=== PATIENT | male | born 1945 | race Caucasian/White ===

== ENCOUNTER 2020-07-15 12:01 | Observation (INO) ==
[2020-07-15] MEDS ORDERED: Isovue-370 500 ML BOTTLE IVP ONE (12:08)
[2020-07-15 12:26] LABS: Hematocrit 38.4 % (37.5-50.1); Hemoglobin 13.2 g/dL (12.9-16.9); Mean Corpuscular HGB Conc 34.4 g/dL (31.6-35.5); Mean Corpuscular Hemoglobin 29.9 pg (28.0-33.3); Mean Corpuscular Volume 87.1 fL (83.0-100.0); Mean Platelet Volume 11.9 fL (9.4-12.4); Platelet Count 136 K/mcL (140-400); Red Blood Count 4.41 M/mcL (4.19-5.50); Red Cell Distribution Width 13.2 % (11.5-14.5)
[2020-07-15 12:33] LABS: Prothrombin Time 11.3 Seconds (9.4-12.1)
[2020-07-15 12:36] LABS: Activated Partial Thrombo Time 26.1 Seconds (26.0-36.0)
[2020-07-15 12:49] LABS: BUN/Creatinine Ratio 19 (6-26); Blood Urea Nitrogen 20 mg/dL (8-23); Calcium 8.9 mg/dL (8.6-10.3); Carbon Dioxide 27 mEq/L (23-29); Chloride 105 mEq/L (98-107); Glucose 111 mg/dL (70-105); Osmolality,Calculated 291 (280-300); Potassium 4.2 mEq/L (3.5-5.1); Sodium 139 mEq/L (136-145); eGFR For African Americans > 60 (> 60); eGFR For Non-African Americans > 60 (> 60)
[2020-07-15 12:50] LABS: Troponin I 0.03 ng/mL (< 0.04)
[2020-07-15] MEDS ORDERED: Aspirin 325 MG TABLET PO ONE (13:18)
[2020-07-15] MEDS ORDERED: Naloxone 0.4 MG/ML INJ IVP PRN (15:53)
[2020-07-15] MEDS: Melatonin 3 MG TABLET PO SCH (22:22)
[2020-07-15] MEDS: Ascorbic Acid 500 MG TABLET PO SCH (22:23)
[2020-07-16 01:10] LABS: Basophils % 0.3 %; Eosinophils # 0.2 K/mcL (0.0-0.6); Eosinophils % 2.7 %; Hematocrit 39.8 % (37.5-50.1); Hemoglobin 13.4 g/dL (12.9-16.9); Immature Granulocytes % 0.8 % (0-4); Lymphocytes # 1.2 K/mcL (0.6-4.6); Lymphocytes % 16.8 %; Mean Corpuscular HGB Conc 33.7 g/dL (31.6-35.5); Mean Corpuscular Hemoglobin 29.6 pg (28.0-33.3); Mean Corpuscular Volume 87.9 fL (83.0-100.0); Mean Platelet Volume 12.2 fL (9.4-12.4); Monocytes # 0.5 K/mcL (0.0-1.3); Neutrophils # 5.2 K/mcL (1.6-8.9); Platelet Count 148 K/mcL (140-400); Red Blood Count 4.53 M/mcL (4.19-5.50); Red Cell Distribution Width 13.2 % (11.5-14.5); Segmented Neutrophils % 72.4 %; White Blood Count 7.1 K/mcL (4.3-11.1)
[2020-07-16 01:26] LABS: BUN/Creatinine Ratio 17 (6-26); Blood Urea Nitrogen 18 mg/dL (8-23); Calcium 8.6 mg/dL (8.6-10.3); Carbon Dioxide 26 mEq/L (23-29); Chloride 104 mEq/L (98-107); Chol/HDL Ratio 3.2 (0-4.9); Cholesterol 158 mg/dL (< 200); Glucose 95 mg/dL (70-105); HDL Cholesterol 49 mg/dL (40-59); LDL Cholesterol,Calculated 81 mg/dL (< 100); Osmolality,Calculated 288 (280-300); Potassium 4.3 mEq/L (3.5-5.1); Sodium 138 mEq/L (136-145); Triglycerides 140 mg/dL (< 150); Troponin I 0.03 ng/mL (< 0.04); eGFR For African Americans > 60 (> 60); eGFR For Non-African Americans > 60 (> 60)
[2020-07-16] MEDS: Ascorbic Acid 500 MG TABLET PO SCH ×2 (07:33→21:36)
[2020-07-16] MEDS ORDERED: Perflutren Lipid Microsphere 1.3 ML in 0.9 % Sodium Chloride 8.7 ML IVP PRN (10:08)
[2020-07-16] MEDS ORDERED: Artificial Tears SOLN 15 ML BOTTLE OP PRN (10:14)
[2020-07-16] MEDS ORDERED: Magnesium Oxide 400 MG TABLET PO PRN (10:14)
[2020-07-16 13:23] LABS: Estimated Average Glucose 128 mg/dl
[2020-07-16] MEDS: Regadenoson 0.4 MG/5 ML SYRINGE IVP ONE (13:39)
[2020-07-16] MEDS: *HR* Heparin 5,000 UNIT/ML VIAL SQ SCH (16:48)
[2020-07-16] MEDS: Melatonin 3 MG TABLET PO SCH (21:36)
[2020-07-16] MEDS: Budesonide/Formoterol 160/4.5 1 PUFF INH IH SCH (23:58)
[2020-07-17] MEDS: *HR* Heparin 5,000 UNIT/ML VIAL SQ SCH (05:09)
[2020-07-17] MEDS ORDERED: Regadenoson 0.4 MG/5 ML SYRINGE IVP ONE (05:51)
[2020-07-17 06:23] LABS: Hematocrit 42.1 % (37.5-50.1); Hemoglobin 14.4 g/dL (12.9-16.9); Mean Corpuscular HGB Conc 34.2 g/dL (31.6-35.5); Mean Corpuscular Hemoglobin 30.2 pg (28.0-33.3); Mean Corpuscular Volume 88.3 fL (83.0-100.0); Mean Platelet Volume 12.2 fL (9.4-12.4); Platelet Count 152 K/mcL (140-400); Red Blood Count 4.77 M/mcL (4.19-5.50); Red Cell Distribution Width 13.2 % (11.5-14.5); White Blood Count 6.6 K/mcL (4.3-11.1)
[2020-07-17] MEDS: Regadenoson 0.4 MG/5 ML SYRINGE IVP ONE (07:44)
[2020-07-17] MEDS ORDERED: Cholecalciferol (D-3) 1,000 UNIT (25MCG) TABLET PO SCH (09:00)
[2020-07-17] MEDS ORDERED: Furosemide 20 MG TABLET PO SCH (09:00)
[2020-07-17] MEDS ORDERED: Multivit/Ca/Min/Fe/FA 1 TAB TABLET PO SCH (09:00)
[2020-07-17] MEDS ORDERED: amLODIPine 5 MG TABLET PO SCH (09:00)
[2020-07-17] MEDS ORDERED: Cyanocobalamin (B-12) 1,000 MCG TABLET PO SCH (09:00)
[2020-07-17] MEDS ORDERED: lisinopriL 20 MG TABLET PO SCH (09:00)
[2020-07-17] MEDS: Ascorbic Acid 500 MG TABLET PO SCH (09:14)
[2020-07-17] MEDS: Budesonide/Formoterol 160/4.5 1 PUFF INH IH SCH (10:36)
[2020-07-17 14:11] VITALS: BP 95/54
== END 2020-07-17 16:15 | disposition home or self-care (01) ==
LOC: 3BNU 12:01 → EMEROOARM 12:01 → 3BNU 14:54
PROVIDERS: ADMIT Internal Medicine; ATTEND Internal Medicine

== ENCOUNTER 2021-02-20 09:23 | Inpatient (IN) ==
[~2021-02-20 09:23] MED LIST: *HR* FentaNYL (PF) 100 MCG/2 ML VIAL IVP PRN; Ondansetron ODT 4 MG TAB.RAPDIS SL ONE
[2021-02-20] MEDS ORDERED: CeFAZolin Syr 2,000MG/20 ML 2,000 MG/20 ML SYRINGE IVPB ONE (09:50)
[2021-02-20] MEDS ORDERED: Famotidine 20 MG/2 ML VIAL IVP ONE (09:58)
[2021-02-20] MEDS ORDERED: Ringers Solution, Lactated 1,000 ML IVC SCH (10:00)
[2021-02-20] MEDS ORDERED: *HR* Vasopressin 20 UNIT/ML VIAL ONE (10:15)
[2021-02-20] MEDS ORDERED: Acetaminophen IV 1,000 MG/100 ML BAG IVPB ONE (10:15)
[2021-02-20] MEDS ORDERED: *HR* Etomidate 40 MG/20 ML VIAL IVP ONE (10:18)
[2021-02-20] MEDS ORDERED: *HR* Propofol 200 MG/20 ML VIAL IVP ONE (10:18)
[2021-02-20] MEDS ORDERED: *HR* FentaNYL (PF) 100 MCG/2 ML VIAL ONE (10:18)
[2021-02-20] MEDS ORDERED: *HR* Phenylephrine 10 MG/ML VIAL ONE (10:20)
[2021-02-20] MEDS ORDERED: *HR* HYDROcodone/Acet 5/325 mg TABLET PO PRN (11:43)
[2021-02-20] MEDS ORDERED: Lidocaine -MPF 2% 2 ML VIAL ONE (11:59)
[2021-02-20] MEDS ORDERED: *HR* Succinylcholine 200 MG/10 ML VIAL IVP ONE (11:59)
[2021-02-20] MEDS ORDERED: EPHEDrine 50 MG/ML VIAL IVP ONE (12:18)
[2021-02-20] MEDS ORDERED: EPHEDrine 50 MG/ML VIAL IVP PRN ×3 (12:19→12:52)
[2021-02-20] MEDS ORDERED: EPHEDrine 50 MG/ML VIAL ONE (12:21)
[2021-02-20] MEDS ORDERED: Phenylephrine 10 MG in 0.9 % Sodium Chloride 250 ML IVC SCH (13:45)
[2021-02-20] MEDS ORDERED: *HR* Belladonna Alkaloids/Opium 30 MG RECTAL SUPPOSITORY RC ONE (13:50)
[2021-02-20] MEDS ORDERED: Naloxone 0.4 MG/ML INJ IVP PRN (15:30)
[2021-02-20 15:38] LABS: Basophils % 0.2 %; Eosinophils % 0.2 %; Hematocrit 31.9 % (37.5-50.1); Hemoglobin 10.7 g/dL (12.9-16.9); Immature Granulocytes % 0.6 % (0-4); Lymphocytes # 0.9 K/mcL (0.6-4.6); Mean Corpuscular HGB Conc 33.5 g/dL (31.6-35.5); Mean Corpuscular Hemoglobin 29.6 pg (28.0-33.3); Mean Corpuscular Volume 88.4 fL (83.0-100.0); Mean Platelet Volume 12.6 fL (9.4-12.4); Monocytes # 0.3 K/mcL (0.0-1.3); Monocytes % 2.1 %; Neutrophils # 11.5 K/mcL (1.6-8.9); Platelet Count 190 K/mcL (140-400); Red Blood Count 3.61 M/mcL (4.19-5.50); Red Cell Distribution Width 13.1 % (11.5-14.5); Segmented Neutrophils % 89.9 %; White Blood Count 12.8 K/mcL (4.3-11.1)
[2021-02-20] MEDS: *HR* FentaNYL (PF) 100 MCG/2 ML VIAL IVP PRN ×2 (15:55→19:55)
[2021-02-20 15:57] LABS: Calcium 8.9 mg/dL (8.6-10.3); Potassium 3.8 mEq/L (3.5-5.1)
[2021-02-20 15:58] LABS: Troponin I 0.03 ng/mL (< 0.04)
[2021-02-20] MEDS ORDERED: Morphine Sulfate 2 MG/ML SYRINGE IVP PRN (16:41)
[2021-02-20] MEDS ORDERED: Ringers Solution, Lactated 500 ML IVC ONE (16:43)
[2021-02-20] MEDS ORDERED: Albuterol 2.5 MG/3 ML NEBULIZER IH PRN (16:51)
[2021-02-20] MEDS: Norepinephrine 4 MG/254 ML IV.SOLN IVC SCH ×2 (16:52→21:35)
[2021-02-20] MEDS: Piperacillin/Tazobactam 3.375 GM in 0.9 % Sodium Chloride Mini Bag 100 ML IVPB SCH (16:58)
[2021-02-20] MEDS: cefTRIAXone 2,000 MG in Water for inj. (sterile) 20 ML IVP SCH (16:58)
[2021-02-20] MEDS: Ipratropium/Albuterol Neb 3 ML IH SCH ×3 (17:22→22:56)
[2021-02-20 18:07] LABS: ABG Base Excess -10 mEq/L (-2 to 3); ABG HCO3 16 mEq/L (21-27); ABG Oxygen Saturation 98 % (95-98); ABG PCO2 31 mmHg (35-45); ABG PH 7.32 pH Units (7.32-7.45); ABG PO2 112 mmHg (85-104); ABG TCO2 17 mEq/L (20-26)
[2021-02-20] MEDS: Pantoprazole 40 MG VIAL IVP SCH (18:53)
[2021-02-20 19:16] LABS: VBG Ionized Calcium 1.12 mmol/L (1.15-1.35)
[2021-02-20 19:24] LABS: INR 1.2; Prothrombin Time 14.3 Seconds (9.4-12.1)
[2021-02-20 19:37] LABS: Albumin 3.6 g/dL (3.5-5.7); Albumin/Globulin Ratio 1.9 (1.1-2.2); Bilirubin,Direct 0.3 mg/dL (0.0-0.2); Bilirubin,Indirect 0.5 mg/dL (0.0-1.0); Bilirubin,Total 0.8 mg/dL (0.3-1.0); Globulin 1.9 g/dL (2.4-3.5); Magnesium 1.9 mg/dL (1.6-2.6); Total Protein 5.5 g/dL (6.4-8.9)
[2021-02-20] MEDS: Budesonide/Formoterol 160/4.5 1 PUFF INH IH SCH (20:16)
[2021-02-20] MEDS ORDERED: 0.9 % Sodium Chloride 250 ML ONE (20:42)
[2021-02-20 20:46] LABS: Calcium 8.2 mg/dL (8.6-10.3); Hematocrit 27.7 % (37.5-50.1); Mean Corpuscular HGB Conc 32.9 g/dL (31.6-35.5); Mean Corpuscular Hemoglobin 29.8 pg (28.0-33.3); Mean Corpuscular Volume 90.8 fL (83.0-100.0); Mean Platelet Volume 12.9 fL (9.4-12.4); Platelet Count 177 K/mcL (140-400); Potassium 4.4 mEq/L (3.5-5.1); Red Blood Count 3.05 M/mcL (4.19-5.50); Red Cell Distribution Width 13.3 % (11.5-14.5); White Blood Count 16.2 K/mcL (4.3-11.1)
[2021-02-20 20:47] LABS: Hemoglobin 9.1 g/dL (12.9-16.9)
[2021-02-20] MEDS ORDERED: Ondansetron 4 MG/2 ML VIAL IVP PRN (22:29)
[2021-02-21] MEDS: Ipratropium/Albuterol Neb 3 ML IH SCH ×6 (03:56→23:35)
[2021-02-21 04:09] LABS: VBG Ionized Calcium 1.13 mmol/L (1.15-1.35)
[2021-02-21 04:32] LABS: Calcium 8.4 mg/dL (8.6-10.3); Potassium 4.9 mEq/L (3.5-5.1)
[2021-02-21 04:34] LABS: Hematocrit 25.9 % (37.5-50.1); Hemoglobin 8.9 g/dL (12.9-16.9); Mean Corpuscular HGB Conc 34.4 g/dL (31.6-35.5); Mean Corpuscular Hemoglobin 30.2 pg (28.0-33.3); Mean Corpuscular Volume 87.8 fL (83.0-100.0); Mean Platelet Volume 12.5 fL (9.4-12.4); Platelet Count 176 K/mcL (140-400); Red Blood Count 2.95 M/mcL (4.19-5.50); Red Cell Distribution Width 13.4 % (11.5-14.5); White Blood Count 18.3 K/mcL (4.3-11.1)
[2021-02-21 06:25] LABS: VBG Ionized Calcium 1.16 mmol/L (1.15-1.35)
[2021-02-21] MEDS: Budesonide/Formoterol 160/4.5 1 PUFF INH IH SCH ×2 (07:47→23:35)
[2021-02-21] MEDS: Piperacillin/Tazobactam 3.375 GM in 0.9 % Sodium Chloride Mini Bag 100 ML IVPB SCH ×2 (07:56)
[2021-02-21] MEDS: Pantoprazole 40 MG VIAL IVP SCH (07:57)
[2021-02-21 08:17] LABS: Hematocrit 24.4 % (37.5-50.1); Hemoglobin 8.3 g/dL (12.9-16.9)
[2021-02-21] MEDS ORDERED: D5% in Water 1,000 ML IVC PRN ×2 (11:54→17:25)
[2021-02-21] MEDS ORDERED: Dextrose Gel 15 GM/37.5 ML TUBE PO PRN ×4 (11:54→17:25)
[2021-02-21] MEDS ORDERED: *HR* Dextrose 50 % in Water (Vial) 50 ML VIAL IVP PRN ×2 (11:54→17:25)
[2021-02-21] MEDS ORDERED: Insulin LISPRO 300 UNITS/3 ML VIAL SUBQ SCH (12:00)
[2021-02-21 13:46] LABS: Hematocrit 22.4 % (37.5-50.1)
[2021-02-21] MEDS: cefTRIAXone 2,000 MG in Water for inj. (sterile) 20 ML IVP SCH (16:28)
[2021-02-21] MEDS ORDERED: *HR* HYDROcodone/Acet 5/325 mg TABLET PO PRN (17:25)
[2021-02-21] MEDS ORDERED: EPHEDrine 50 MG/ML VIAL IVP PRN (17:25)
[2021-02-21] MEDS ORDERED: *HR* FentaNYL (PF) 100 MCG/2 ML VIAL IVP PRN (17:25)
[2021-02-21] MEDS ORDERED: Ondansetron 4 MG/2 ML VIAL IVP PRN (17:25)
[2021-02-21] MEDS ORDERED: Morphine Sulfate 2 MG/ML SYRINGE IVP PRN (17:25)
[2021-02-21] MEDS ORDERED: Naloxone 0.4 MG/ML INJ IVP PRN (17:25)
[2021-02-21] MEDS ORDERED: Albuterol 2.5 MG/3 ML NEBULIZER IH PRN (17:25)
[2021-02-21] MEDS: Insulin LISPRO 300 UNITS/3 ML VIAL SUBQ SCH (18:10)
[2021-02-21 20:31] LABS: Hematocrit 22.2 % (37.5-50.1); Hemoglobin 7.4 g/dL (12.9-16.9)
[2021-02-22] MEDS: Insulin LISPRO 300 UNITS/3 ML VIAL SUBQ SCH ×4 (00:04→18:34)
[2021-02-22 01:06] LABS: Hematocrit 20.8 % (37.5-50.1); Hematocrit 21.5 % (37.5-50.1); Hemoglobin 7.2 g/dL (12.9-16.9); Mean Corpuscular HGB Conc 34.6 g/dL (31.6-35.5); Mean Corpuscular Hemoglobin 30.9 pg (28.0-33.3); Mean Corpuscular Volume 89.3 fL (83.0-100.0); Mean Platelet Volume 12.9 fL (9.4-12.4); Platelet Count 121 K/mcL (140-400); Red Blood Count 2.33 M/mcL (4.19-5.50); White Blood Count 12.7 K/mcL (4.3-11.1)
[2021-02-22 01:08] LABS: Hemoglobin 7.1 g/dL (12.9-16.9)
[2021-02-22 01:24] LABS: Calcium 8.4 mg/dL (8.6-10.3); Potassium 4.3 mEq/L (3.5-5.1)
[2021-02-22] MEDS ORDERED: 0.9 % Sodium Chloride 250 ML IVC SCH (01:45)
[2021-02-22] MEDS: Ipratropium/Albuterol Neb 3 ML IH SCH ×6 (03:35→23:12)
[2021-02-22] MEDS: Budesonide/Formoterol 160/4.5 1 PUFF INH IH SCH ×2 (07:31→19:31)
[2021-02-22] MEDS: Pantoprazole 40 MG VIAL IVP SCH (07:39)
[2021-02-22 08:52] LABS: Hematocrit 23.3 % (37.5-50.1); Hemoglobin 7.8 g/dL (12.9-16.9)
[2021-02-22] MEDS ORDERED: cefTRIAXone 2,000 MG in Water for inj. (sterile) 20 ML IVP SCH (15:31)
[2021-02-22 15:34] LABS: Hematocrit 22.9 % (37.5-50.1); Hemoglobin 7.5 g/dL (12.9-16.9)
[2021-02-22] MEDS ORDERED: Insulin LISPRO 300 UNITS/3 ML VIAL SUBQ SCH (21:00)
[2021-02-22] MEDS ORDERED: Albumin 25% 25gram/100mL 25 GM/100 ML IV.SOLN IVPB ONE (22:07)
[2021-02-22] MEDS ORDERED: *HR* Metoprolol 5 MG/5 ML VIAL IVP ONE (22:19)
[2021-02-23 02:39] LABS: Hematocrit 21.5 % (37.5-50.1); Hemoglobin 7.3 g/dL (12.9-16.9); Mean Corpuscular Hemoglobin 30.3 pg (28.0-33.3); Mean Corpuscular Volume 89.2 fL (83.0-100.0); Mean Platelet Volume 12.2 fL (9.4-12.4); Platelet Count 116 K/mcL (140-400); Red Blood Count 2.41 M/mcL (4.19-5.50); Red Cell Distribution Width 15.4 % (11.5-14.5); White Blood Count 8.5 K/mcL (4.3-11.1)
[2021-02-23 02:46] LABS: BUN/Creatinine Ratio 21 (6-26); Blood Urea Nitrogen 24 mg/dL (8-23); Calcium 8.6 mg/dL (8.6-10.3); Carbon Dioxide 26 mEq/L (23-29); Chloride 107 mEq/L (98-107); Glucose 108 mg/dL (70-105); Osmolality,Calculated 293 (280-300); Potassium 4.4 mEq/L (3.5-5.1); Sodium 139 mEq/L (136-145); eGFR For African Americans > 60 (> 60); eGFR For Non-African Americans > 60 (> 60)
[2021-02-23] MEDS: Ipratropium/Albuterol Neb 3 ML IH SCH ×3 (03:00→11:13)
[2021-02-23 04:08] LABS: Estimated Average Glucose 120 mg/dl; Hemoglobin A1C 5.8 %
[2021-02-23] MEDS: Budesonide/Formoterol 160/4.5 1 PUFF INH IH SCH (07:41)
[2021-02-23 08:15] VITALS: TEMP 97.8
[2021-02-23] MEDS: Pantoprazole 40 MG VIAL IVP SCH (09:44)
[2021-02-23] MEDS: Insulin LISPRO 300 UNITS/3 ML VIAL SUBQ SCH ×2 (09:45→12:00)
[2021-02-23] MEDS ORDERED: Furosemide 20 MG TABLET PO SCH (10:30)
[2021-02-23 11:44] VITALS: BP 157/75; PULSE 99; O2SAT 94
== END 2021-02-23 13:21 | disposition home or self-care (01) | DRG 725 ==
LOC: SUATTDRO → SAMDAY 09:23 → ICNU 15:25 → 3ANU 02-22 14:26
PROVIDERS: ADMIT Family Medicine; ATTEND Family Medicine
PROC: [UNRECOGNIZED PROCEDURE] (2021-02-20 11:15)

== ENCOUNTER 2021-02-25 16:56 | Inpatient (IN) ==
[2021-02-25 18:00] LABS: Basophils % 0.1 %; Eosinophils # 0.2 K/mcL (0.0-0.6); Eosinophils % 1.8 %; Immature Granulocytes % 1.4 % (0-4); Lymphocytes # 0.7 K/mcL (0.6-4.6); Lymphocytes % 7.8 %; Mean Corpuscular HGB Conc 34.8 g/dL (31.6-35.5); Mean Corpuscular Hemoglobin 31.1 pg (28.0-33.3); Mean Corpuscular Volume 89.5 fL (83.0-100.0); Mean Platelet Volume 11.9 fL (9.4-12.4); Monocytes # 0.8 K/mcL (0.0-1.3); Monocytes % 8.8 %; Neutrophils # 7.3 K/mcL (1.6-8.9); Platelet Count 159 K/mcL (140-400); Red Blood Count 2.57 M/mcL (4.19-5.50); Red Cell Distribution Width 15.4 % (11.5-14.5); Segmented Neutrophils % 80.1 %; White Blood Count 9.1 K/mcL (4.3-11.1)
[2021-02-25 18:18] LABS: INR 1.1; Prothrombin Time 12.7 Seconds (9.4-12.1)
[2021-02-25 18:20] LABS: BUN/Creatinine Ratio 21 (6-26); Blood Urea Nitrogen 21 mg/dL (8-23); Calcium 8.7 mg/dL (8.6-10.3); Carbon Dioxide 25 mEq/L (23-29); Chloride 104 mEq/L (98-107); Glucose 115 mg/dL (70-105); Osmolality,Calculated 288 (280-300); Sodium 137 mEq/L (136-145); eGFR For African Americans > 60 (> 60); eGFR For Non-African Americans > 60 (> 60)
[2021-02-25 18:21] LABS: Activated Partial Thrombo Time 24.7 Seconds (26.0-36.0)
[2021-02-25 18:24] LABS: Troponin I 0.06 ng/mL (< 0.04)
[2021-02-25 18:59] LABS: Adenovirus Not Detected (Not Detect); Coronavirus 229E Not Detected (Not Detect); Coronavirus HKU1 Not Detected (Not Detect); Coronavirus NL63 Not Detected (Not Detect); Coronavirus OC43 Not Detected (Not Detect); Human Metapneumovirus Not Detected (Not Detect); SARS-CoV-2 Not Detected (Not Detect)
[2021-02-25 19:00] LABS: Bordetella Pertussis Not Detected (Not Detect); Chlamydophila pneumoniae Not Detected (Not Detect); Human Rhinovirus/Enterovirus Not Detected (Not Detect); Influenza A Subtype 2009 H1 Not Detected (Not Detect); Influenza B Not Detected (Not Detect); Mycoplasma pneumoniae Not Detected (Not Detect); Parainfluenza Virus 1 Not Detected (Not Detect); Parainfluenza Virus 2 Not Detected (Not Detect); Parainfluenza Virus 3 Not Detected (Not Detect); Parainfluenza Virus 4 Not Detected (Not Detect); Respiratory Syncytial Virus Not Detected (Not Detect)
[2021-02-25] MEDS ORDERED: *HR* Heparin 5,000 UNIT/ML VIAL IVP ONE ×2 (19:46→20:00)
[2021-02-25] MEDS ORDERED: *HR* Heparin 5,000 UNIT/ML VIAL IVP PRN ×2 (20:00)
[2021-02-25 20:27] LABS: Hematocrit 24.1 % (37.5-50.1); Hemoglobin 8.3 g/dL (12.9-16.9); Mean Corpuscular HGB Conc 34.4 g/dL (31.6-35.5); Mean Corpuscular Hemoglobin 30.4 pg (28.0-33.3); Mean Corpuscular Volume 88.3 fL (83.0-100.0); Mean Platelet Volume 11.8 fL (9.4-12.4); Platelet Count 164 K/mcL (140-400); Red Blood Count 2.73 M/mcL (4.19-5.50); Red Cell Distribution Width 15.5 % (11.5-14.5)
[2021-02-25] MEDS ORDERED: Naloxone 0.4 MG/ML INJ IVP PRN (20:32)
[2021-02-25] MEDS ORDERED: Acetaminophen 325 MG TABLET PO PRN (20:32)
[2021-02-25] MEDS ORDERED: Ondansetron 4 MG/2 ML VIAL IVP PRN (20:32)
[2021-02-25 20:42] LABS: Heparin anti-factor XA UFH < 0.04 IU/mL (0.30-0.70)
[2021-02-25 20:43] LABS: INR 1.1; Prothrombin Time 12.5 Seconds (9.4-12.1)
[2021-02-25] MEDS ORDERED: Perflutren Lipid Microsphere 1.3 ML in 0.9 % Sodium Chloride 8.7 ML IVP PRN (20:51)
[2021-02-25] MEDS: Heparin 25,000UNIT/250ML 1/2NS 25,000 UNIT/250 ML IV.SOLN IVC SCH (20:53)
[2021-02-26 02:48] LABS: White Blood Count 8.6 K/mcL (4.3-11.1)
[2021-02-26 02:49] LABS: Basophils % 0.2 %; Eosinophils # 0.2 K/mcL (0.0-0.6); Eosinophils % 1.9 %; Hematocrit 23.3 % (37.5-50.1); Hemoglobin 7.7 g/dL (12.9-16.9); Immature Granulocytes % 1.5 % (0-4); Lymphocytes # 0.8 K/mcL (0.6-4.6); Lymphocytes % 9.4 %; Mean Corpuscular Hemoglobin 29.5 pg (28.0-33.3); Mean Corpuscular Volume 89.3 fL (83.0-100.0); Mean Platelet Volume 12.3 fL (9.4-12.4); Monocytes # 0.7 K/mcL (0.0-1.3); Monocytes % 8.6 %; Neutrophils # 6.8 K/mcL (1.6-8.9); Platelet Count 155 K/mcL (140-400); Red Blood Count 2.61 M/mcL (4.19-5.50); Red Cell Distribution Width 15.4 % (11.5-14.5); Segmented Neutrophils % 78.4 %
[2021-02-26 03:01] LABS: Alanine Aminotransferase 15 Units/L (7-52); Albumin 3.9 g/dL (3.5-5.7); Albumin/Globulin Ratio 1.7 (1.1-2.2); Alkaline Phosphatase 64 Units/L (34-104); Aspartate Amino Transferase 19 Units/L (13-39); BUN/Creatinine Ratio 21 (6-26); Bilirubin,Total 1.8 mg/dL (0.3-1.0); Blood Urea Nitrogen 20 mg/dL (8-23); Calcium 8.7 mg/dL (8.6-10.3); Carbon Dioxide 22 mEq/L (23-29); Chloride 105 mEq/L (98-107); Globulin 2.3 g/dL (2.4-3.5); Glucose 122 mg/dL (70-105); Magnesium 1.9 mg/dL (1.6-2.6); Osmolality,Calculated 288 (280-300); Potassium 3.9 mEq/L (3.5-5.1); Sodium 137 mEq/L (136-145); Total Protein 6.2 g/dL (6.4-8.9); eGFR For African Americans > 60 (> 60); eGFR For Non-African Americans > 60 (> 60)
[2021-02-26 09:23] LABS: Hematocrit 24.8 % (37.5-50.1); Hemoglobin 8.3 g/dL (12.9-16.9)
[2021-02-26] MEDS: Metoprolol XL (24 HR) Succ 25 MG TAB.ER.24H PO SCH (14:45)
[2021-02-26 16:16] LABS: Hematocrit 24.9 % (37.5-50.1); Hemoglobin 8.2 g/dL (12.9-16.9)
[2021-02-26 16:23] LABS: Heparin anti-factor XA UFH 0.32 IU/mL (0.30-0.70); INR 1.1; Prothrombin Time 12.9 Seconds (9.4-12.1)
[2021-02-26] MEDS: Heparin 25,000UNIT/250ML 1/2NS 25,000 UNIT/250 ML IV.SOLN IVC SCH (17:09)
[2021-02-26] MEDS ORDERED: Warfarin perPT PO PRN (18:00)
[2021-02-26] MEDS: Budesonide/Formoterol 160/4.5 1 PUFF INH IH SCH (20:19)
[2021-02-26] MEDS: Ascorbic Acid 500 MG TABLET PO SCH (20:29)
[2021-02-26] MEDS: Magnesium Oxide 400 MG TABLET PO SCH (20:30)
[2021-02-26 22:33] LABS: Hematocrit 24.4 % (37.5-50.1); Hemoglobin 8.2 g/dL (12.9-16.9)
[2021-02-27 02:00] LABS: Hematocrit 24.7 % (37.5-50.1); Hemoglobin 8.4 g/dL (12.9-16.9); Mean Corpuscular Hemoglobin 30.8 pg (28.0-33.3); Mean Corpuscular Volume 90.5 fL (83.0-100.0); Mean Platelet Volume 12.2 fL (9.4-12.4); Platelet Count 166 K/mcL (140-400); Red Blood Count 2.73 M/mcL (4.19-5.50); Red Cell Distribution Width 15.9 % (11.5-14.5); White Blood Count 8.3 K/mcL (4.3-11.1)
[2021-02-27 02:06] LABS: INR 1.2; Prothrombin Time 13.5 Seconds (9.4-12.1)
[2021-02-27 02:17] LABS: BUN/Creatinine Ratio 23 (6-26); Blood Urea Nitrogen 24 mg/dL (8-23); Calcium 8.6 mg/dL (8.6-10.3); Carbon Dioxide 21 mEq/L (23-29); Chloride 106 mEq/L (98-107); Glucose 130 mg/dL (70-105); Osmolality,Calculated 288 (280-300); Potassium 4.2 mEq/L (3.5-5.1); Sodium 136 mEq/L (136-145); eGFR For African Americans > 60 (> 60); eGFR For Non-African Americans > 60 (> 60)
[2021-02-27 03:02] LABS: % Iron Saturation 18 % (20-55); Ferritin 139 ng/mL (20-250); Iron 60 mcg/dL (65-175); Transferrin 243 mg/dL (203-362)
[2021-02-27 03:31] VITALS: TEMP 97.8
[2021-02-27 07:22] VITALS: BP 125/71; PULSE 84
[2021-02-27] MEDS: Budesonide/Formoterol 160/4.5 1 PUFF INH IH SCH (07:29)
[2021-02-27] MEDS ORDERED: Furosemide 20 MG TABLET PO SCH (09:00)
[2021-02-27] MEDS ORDERED: Cyanocobalamin (B-12) 1,000 MCG TABLET PO SCH (09:00)
[2021-02-27] MEDS ORDERED: Cholecalciferol (D-3) 1,000 UNIT (25MCG) TABLET PO SCH (09:00)
[2021-02-27] MEDS: Ascorbic Acid 500 MG TABLET PO SCH (09:05)
[2021-02-27] MEDS: Metoprolol XL (24 HR) Succ 25 MG TAB.ER.24H PO SCH (09:05)
[2021-02-27] MEDS: Magnesium Oxide 400 MG TABLET PO SCH (09:06)
[2021-02-27] MEDS ORDERED: Apixaban 5 MG TABLET PO SCH (10:00)
[2021-02-27 10:20] VITALS: O2SAT 96
== END 2021-02-27 11:20 | disposition home or self-care (01) | DRG 175 ==
LOC: EMEROOARM 16:56 → 2ANU 16:56
PROVIDERS: ADMIT Internal Medicine; ATTEND Internal Medicine